=== PATIENT | male | born 1995 | race Caucasian/White ===

== ENCOUNTER 2016-12-20 14:10 | Emergency (ER) | payer BC ==
[~2016-12-20] VITALS: Ht 170.2 cm; Wt 66.7 kg
[2016-12-20 14:21] VITALS: BP_SYST 134
[2016-12-20 15:08] LABS: HEMOGLOBIN 16.1 g/dL (14.0-18.0); RED CELL DISTRIBUTION WIDTH 12.4 % (9.0-15.0); WHITE BLOOD COUNT (AUTO) 9.8 K/uL (4.8-10.8)
[2016-12-20 15:15] LABS: MEAN CORPUSCULAR HEMOGLOBIN 31 pg (27-31); MEAN CORPUSCULAR HGB CONC 34 % (32-36); MEAN CORPUSCULAR VOLUME 92 fL (79.0-98.0); PLATELET COUNT (AUTO) 304 K/uL (130-430); RED BLOOD CELL COUNT(AUTO) 5.21 MIL/uL (4.2-6.2)
[2016-12-20] MEDS ORDERED: AMPICILLIN SODIUM/SULBACTAM NA 3 GM in NS 100 ML IV ONE (15:15)
[2016-12-20] MEDS ORDERED: DIPH-TET-PERTUS Vaccine 0.5 ML VIAL (ADACEL) I.M. ONE (15:15)
[2016-12-20 15:19] LABS: CALCIUM 8.6 mg/dL (8.4-11.0); CREATININE 1.13 mg/dL (0.55-1.30); POTASSIUM 4.1 mmol/L (3.5-5.1)
[2016-12-20 15:23] LABS: TOTAL BILIRUBIN 0.5 mg/dL (0.0-1.0)
[2016-12-20 15:29] LABS: BAND % (MANUAL) 0 % (0-6); EOSINOPHILS % (MANUAL) 3 % (0-7); LYMPHOCYTES % (MANUAL) 19 % (20-46); MONOCYTES % (MANUAL) 14 % (0-11)
[2016-12-20 15:30] LABS: BASOPHILS % (MANUAL) 0 % (0-2)
[2016-12-20] MEDS ORDERED: AMPICILLIN SODIUM/SULBACTAM NA 3 GM VIAL ONE ×2 (15:37→16:21)
[2016-12-20 17:05] VITALS: BP_SYST 105
== END 2016-12-20 17:05 | disposition home or self-care (01) ==
LOC: SED 14:10
DX: L03.115 Cellulitis of right lower limb (principal); Z88.2 Allergy status to sulfonamides; Z88.1 Allergy status to other antibiotic agents
CPT/HCPCS: 36415; 73564; 80053; 85007; 85027; 90471; 90715; 96365; 99285; J0295